=== PATIENT | female | born 1940 | race African-American/Black ===

== ENCOUNTER 2016-08-12 07:59 | Day surgery (SDC) | payer OTHER ==
[2016-08-06 12:16] VITALS: BMI 27.4
[2016-08-12] MEDS ORDERED: PROPOFOL 20 ML ONE ×2 (08:02)
[2016-08-12 10:37] VITALS: PULSE 69; TEMP 98.5
[2016-08-12 10:40] VITALS: BP 124/69
== END 2016-08-12 10:35 | disposition home or self-care (01) ==
LOC: FASU-ENDO 07:59
PROVIDERS: ATTEND Internal Medicine Gastroenterology
PROC: 0DJD8ZZ Inspection of Lower Intestinal Tract, Via Natural or Artificial Opening Endoscopic (ICD-10-PCS; principal; 2016-08-12 09:06)
DX: Z12.11 Encounter for screening for malignant neoplasm of colon (principal); K63.89 Other specified diseases of intestine